=== PATIENT | female | born 1985 | race Caucasian/White ===

== ENCOUNTER 2019-12-09 17:31 | Inpatient (IN) | payer OTHER ==
--- NOTE | 2019-12-09 18:29 | RAD ---
RADIOGRAPH LEFT ANKLE 2 VIEWS: 12/09/19 at 6:13 p.m. HISTORY: 34-year-old female status post acute traumatic injury to ankle from fall. TECHNIQUE: Only AP and lateral FINDINGS: There is fracture of the posterior malleolus, with significant superior and posterior displacement of the distal fragment. The talus is dislocated posteriorly relative to the tibial plafond. Although no malalignment is visualized on the AP view, it is suspected that there is a transverse fracture lucen cy across the medial malleolus. On the lateral view, a fracture fragment is visualized slightly infer iorly and lateral to the distal fibula. IMPRESSION: Trimalleolar fracture-dislocation of the ankle. Recommend oblique view. POS: JIN
[2019-12-09 19:43] LABS: #Eosinphils 0.1 thou/uL (0.0-0.7); #Lymphocytes 1.6 thou/uL (1.20-3.40); #Neutrophils 10.6 thou/uL (1.40-6.50); %Basophils 0.4 % (0.0-1.0); %Eosinophils 0.6 % (0.0-10.0); %Lymphocytes 11.9 % (21.0-51.0); %Monocytes 7.3 % (0.0-10.0); %Neutrophils 79.9 % (42.0-75.0); Hemoglobin 12.8 g/dL (12.0-16.0); Mean Corpuscular HGB CONC 33.7 g/dL (32.0-36.0); Mean Corpuscular Volume 94.8 fL (78.0-98.0); Mean Platelet Volume 8.6 fL (7.4-10.4); Platelet Count 189 thou/uL (130-400); RBC Distribution Width 12.2 % (11.5-14.5); Red Blood Cell (RBC) Count 4.01 mill/uL (4.20-5.40); White Blood Cell (WBC) Count 13.2 thou/uL (4.8-10.8)
[2019-12-09 20:02] LABS: Bilirubin Negative (Negative); Blood, Urine Negative (Negative); Clarity Hazy (Clear); Glucose, Urine (Dipstick) Negative (Negative); Leukocyte Negative (Negative); Nitrite Negative (Negative); Protein, Urine (Dipstick) Trace mg/dL (Neg-Trace); Urobilinogen 0.2 mg/dL (Less than 2)
[2019-12-09 20:03] LABS: Bacteria/HPF None Seen HPF (None Seen); RBC/HPF None Seen HPF (0-3); Squamous Epithelial 0-3 HPF (0-3); WBC/HPF 0-3 HPF (0-3)
[2019-12-09 20:03] LABS: Anion Gap 14 mmol/L (10-20); BUN (Urea Nitrogen) 10 mg/dL (7.0-18.7); Calc. Creatinine Clearance 0 mL/min (70-130); Calcium 8.7 mg/dL (7.8-10.44); Carbon Dioxide 19 mmol/L (22-29); Chloride 106 mmol/L (98-107); Estimated GFR-MDRD Greater than 90; Glucose 84 mg/dL (70-105); Potassium 3.5 mmol/L (3.5-5.1); Sodium 135 mmol/L (136-145)
--- NOTE | 2019-12-09 20:07 | RAD ---
RADIOGRAPH LEFT FOOT TWO VIEWS: 12/09/19 at 7:15 p.m. HISTORY: 34-year-old female with acute traumatic fracture dislocation of the ankle. FINDINGS: Splint obscures fine bony detail of the foot. Tendon carol at neck of first metatarsal and proxima l half of first proximal phalanx. No displaced fracture of the foot is identified. No dislocation of the foot. Dislocation of ankle with fractures. IMPRESSION: 1. No grossly displaced fracture of the foot proper. 2. Status post tendon carol around the first metatarsophalangeal joint. 3. Displaced trimalleolar fracture-dislocation of ankle. POS: JIN
[2019-12-09] MEDS ORDERED: Dextrose 5% in Water 1,000 ML IV PRN (20:12)
[2019-12-09] MEDS ORDERED: Ondansetron PF 4 MG/2 ML Vial IVP PRN (20:12)
[2019-12-09] MEDS ORDERED: Ondansetron ODT 4 MG TAB PO PRN (20:12)
[2019-12-09] MEDS ORDERED: Dextrose 50% Abboject 50 ML SYRINGE SLOW IVP PRN (20:12)
--- NOTE | 2019-12-09 20:26 | RAD ---
RADIOGRAPH LEFT ANKLE 2 VIEWS 12/09/19 HISTORY: 34-year-old female with acute ankle fracture-dislocation. FINDINGS: The ankle has been placed into a splint. There has been no other interval change. Posterior dislocati on of the talus relative to the tibial plafond. Displaced fractures of the posterior, medial, and lat eral malleoli. Incidental finding of old tendon carol at the neck of the first metatarsal and proxi mal portion of first proximal phalanx are now in the field of view on the lateral view. IMPRESSION: 1. No interval change in alignment of the acute, traumatic, trimalleolar displaced fracture-disl ocation. 2. Placement of splint. POS: JIN
--- NOTE | 2019-12-09 21:21 | CON ---
DATE OF CONSULTATION: 12/09/2019 ADMITTING PHYSICIAN: Julio Cesar Eubanks DO CONSULTING PHYSICIAN: Miguel Angel Olea MD REASON FOR CONSULTATION: Thirty-five weeks gestation status post left ankle trimalleolar fracture. HISTORY OF PRESENT ILLNESS: Ms. King is a 34-year-old 3, para 2, who is at 35 weeks gestation. She sees Ralph Garland, [facility]. She was walking this afternoon, stumbled and suffered a trimalleolar fracture of her left ankle. She denies abdominal trauma. Reports an active fetus. Denies contractions. She states that by her CHELY, she is 35 weeks' gestation. SHE[employer]ER HISTORY: x1 for breech and labor at term, TOLAC and successful x1 at [facility]. The patient is planning on [facility] this . PAST MEDICAL HISTORY: Denies. PAST SURGICAL HISTORY: Bunionectomy and . ALLERGIES: FOOD ONLY. MEDICATIONS: vitamins. SOCIAL HISTORY: Denies tobacco, alcohol, or IV drug use. FAMILY HISTORY: Noncontributory. REVIEW OF SYSTEMS: Noncontributory. PHYSICAL EXAMINATION: GENERAL: White female, resting comfortably. VITAL SIGNS: Blood pressure 118/72, pulse 85, respirations 18. HEENT: Within normal limits. LUNGS: Clear to auscultation bilaterally. HEART: Regular rhythm. ABDOMEN: Soft and nontender. FHTs 140s. PELVIC: Vulva without lesions. Vaginal exam deferred. EXTREMITIES: No clubbing, cyanosis, or edema except for a bandage and splinting on the left ankle. IMPRESSION: Status post fall without abdominal trauma and left ankle fracture at 35 weeks' gestation. PLAN: 1. A 2-hour monitoring on Labor and Delivery. 2. Continue consultation for in-hospital care. 3. Recommend continuous monitoring if general anesthetic is utilized for surgical procedure and recommend left uterine displacement if at all possible if the patient is going to be on her back for surgery. OB hospitalist service will follow along with Orthopedics and Trauma service management. Job ID: [id number]
[2019-12-09] MEDS: Acetaminophen 500 MG TAB PO SCH (22:39)
[2019-12-09] MEDS: Lactated Ringer's 1,000 ML IV SCH (22:48)
[2019-12-09 23:20] VITALS: BMI 27.3
--- NOTE | 2019-12-09 23:26 | HP ---
ATTENDING PHYSICIAN: Dr. Rider. REQUESTING ER PHYSICIAN: Dr. Klein. CONSULTS: 1. Dr. Olea, [facility]. 2. Orthopedic Surgery, Dr. Foster. CHIEF COMPLAINT: Ground level fall, left ankle trimalleolar fracture, and 35 weeks gestation. HISTORY OF PRESENT ILLNESS: This is a 34-year-old female who is 35 weeks gestation. The patient is a 3, para 2. The patient reports she was ambulating outside when she slipped on some gravel, she was trying to avoid landing floor on her abdomen, which caused her to injure her left ankle. The patient reported immediate left ankle pain and deformity. The patient denies hitting her head or hitting her abdomen. The patient denies any other injuries or complaints. The patient reports that the fetus has been active since she has fallen. The patient denies any contractions or vaginal bleeding. The patient was evaluated in the emergency room and her left trimalleolar fracture dislocation was reduced without any sedation or pain medication per patient request. The patient reports giving a natural 3 years ago and plans do that again with this . The patient was seen in Labor and delivery as she is having monitoring done for approximately 2 hours. The patient's nurse states no abnormalities. PAST MEDICAL HISTORY: Denies. PAST SURGICAL HISTORY: x1 and bilateral bunion repair. ALLERGIES: DAIRY, SOY, GLUTEN AND LATEX WHICH CAUSES RASH. MEDICATIONS: 1. vitamins. 2. Probiotics. SOCIAL HISTORY: Denies tobacco use, alcohol, or IV drug use. The patient is with 2 children. REVIEW OF SYSTEMS: A 10-point review of systems is negative unless otherwise indicated in the above HPI. PHYSICAL EXAMINATION: VITAL SIGNS: Blood pressure 123/79, pulse 92, respirations 18, temperature 99.0, SpO2 99% on room air. GENERAL: Well-appearing young female, awake, alert, in no distress. Currently in Labor and delivery with monitoring. HEENT: Head is atraumatic and normocephalic. Pupils are equal bilateral, mucous membranes are moist. NECK: No neck pain, normal range of motion of neck. RESPIRATORY: Bilateral breath sounds clear. No wheezing, rales, or rhonchi. HEART: Regular rate and regular rhythm. No murmurs. ABDOMEN: Soft, nontender. heart tones 140s. EXTREMITIES: Moves all extremities, distal pulses intact, left lower extremity splinted. No focal deficits. NEUROLOGIC: GCS 15. No focal deficits. IMPRESSION: 1. Status post ground level fall. 2. Left ankle trimalleolar fracture and dislocation, status post reduction in the ER. 3. 35 weeks gestation. PLAN: Admit to the surgical floor once completion of her 2 hour monitoring. Regular diet, gluten free, soy free and dairy free this evening and then n.p.o. after midnight. Maintenance IV fluids LR at 100 mL an hour. Most likely, the patient will go to the OR with Orthopedic Surgery in the morning for repair of her left ankle fracture. Physical and occupational therapy to evaluate and treat postop. The plan will be discussed with the attending after the dictation. Job ID: [id number]
[2019-12-10] MEDS: Acetaminophen 500 MG TAB PO SCH ×5 (01:24→23:16)
--- NOTE | 2019-12-10 07:18 | PRG ---
DATE OF SERVICE: 12/10/2019 TIME OF SERVICE: 0655 hours. SUBJECTIVE: Carmel is a 35 weeks with OB care at [facility], who is status post fall and trimalleolar fracture of the left ankle on 12/08. She was observed on Labor and Delivery for 2 hours with a reactive category 1 nonstress test. She reports an active fetus this morning, and is resting comfortably. The patient is n.p.o. with anticipated open reduction and internal fixation of ankle fracture by Dr. James Foster today. Abdominal exam is unremarkable and unchanged. IMPRESSION: Thirty-five weeks status post left ankle fracture, awaiting surgery. PLAN: We will continue to follow along with the patient. The fetus will require continuous monitoring in the operating room. If possible left lateral displacement of the uterus with sandbags under the patient's right hip and lower back would be preferred intraoperatively if the patient is to lie on her back during surgery. Labor and Delivery nurses are aware. Job ID: [id number]
[2019-12-10] MEDS: Lactated Ringer's 1,000 ML IV SCH (08:46)
[2019-12-10] MEDS ORDERED: Fentanyl 100 MCG/2 ML VIAL ONE (10:29)
[2019-12-10] MEDS ORDERED: Succinylcholine Chloride 20 MG/ML 10 ml SYRINGE FS ONE (11:39)
[2019-12-10] MEDS ORDERED: Bupivacaine HCl 0.5%/Epinephrine 1:200,000/PF 30 ml Vial ONE (11:39)
[2019-12-10] MEDS ORDERED: PROPOFOL 200 MG/20 ML VIAL ONE (11:39)
[2019-12-10] MEDS ORDERED: Lidocaine 2% w/Epinephrine 1:200K 20 ML VIAL ONE (11:39)
[2019-12-10] MEDS ORDERED: PHENYLEPHRINE-NS 100 MCG/ML 10 ML SYRINGE ONE (11:39)
[2019-12-10] MEDS ORDERED: CEFAZOLIN 2 GM in Premix Bag 1 BAG IVPB SCH (12:00)
--- NOTE | 2019-12-10 12:35 | CON ---
DATE OF CONSULTATION: 12/10/2019 CHIEF COMPLAINT: Left ankle pain. HISTORY OF PRESENT ILLNESS: Ms. King is a 34-year-old female, who was walking near her house yesterday. She stepped on uneven ground. She twisted and fell. She is 32 weeks . She felt pain and deformity of her ankle. She was unable to bear weight. She was taken to the Emergency Department. X-rays determined a trimalleolar ankle fracture dislocation with obvious displacement. She has been splinted. She has been admitted to the hospital. Dr. Olea has seen the patient, as well as the General Surgery Trauma Service. I was consulted to treat her ankle fracture. ALLERGIES: GLUTEN, DAIRY, SOY, AND LATEX. PAST MEDICAL HISTORY: Negative. The patient is currently . MEDICATIONS: 1. Probiotics. 2. vitamin. SOCIAL HISTORY: The patient denies tobacco, alcohol, or drug use. REVIEW OF SYSTEMS: Positive for ankle pain with movement. Otherwise, negative 10-point review of systems. IMAGES: X-rays of the left ankle demonstrate a trimalleolar ankle fracture. The talus is dislocated posteriorly. The patient has hardware in her forefoot, which is chronic in nature. PHYSICAL EXAMINATION: VITAL SIGNS: Temperature is 98, pulse is 83, respiratory rate is 20, oxygen saturation is 99%, and blood pressure is 105/71. GENERAL: She is alert, lying supine, in no apparent distress. RESPIRATORY: Breathing comfortably. ABDOMEN: Soft, nontender, and nondistended. MUSCULOSKELETAL: The patient's left lower extremity is splinted. She is able to flex and extend her toes. She has 2 second capillary refill. IMPRESSION: Left ankle fracture dislocation in a 34-year-old female. PLAN: At this point, the patient will need to go to the operating room for open reduction and internal fixation of the ankle. We will plan for this later today. She is n.p.o. She will be tilted on her side as recommended by the Obstetrics Service. She will have monitoring during surgery. A general anesthetic has been recommended. She can likely be discharged home today if she is doing well. She will need to be nonweightbearing using a walker for mobility. She will have pain control. Job ID: [id number]
--- NOTE | 2019-12-10 12:45 | RAD ---
Radiograph left ankle 3 views: 12/10/2019 11:22 AM HISTORY: 34-year-old male with acute, traumatic, trimalleolar fracture-dislocation of the ankle. COMPARISON: 12/09/2019 FINDINGS: Fluoroscopic spot images obtained with C-arm in the OR. The tibiotalar or dislocation has been reduce d. Ankle mortise is now congruent. There has been interval reduction of the medial malleolus fracture fixated now with 2 lag screws. There has been interval reduction and plate and screw fixatio n of the lateral malleolus fracture. The posterior malleolus fracture fragment displacement has improved. IMPRESSION: Open reduction internal fixation of acute, traumatic, trimalleolar fracture-dislocation of the ankle, with hardware fixation of medial and lateral malleolar fractures.
[2019-12-10] MEDS: CEFAZOLIN 2 GM in Premix Bag 1 BAG IVPB SCH (17:00)
--- NOTE | 2019-12-10 17:37 | PRG ---
DATE OF SERVICE: 12/10/2019 SUBJECTIVE: The patient was seen this afternoon postoperatively after fixation of her left trimalleolar fracture/dislocation. At the time of my evaluation, she was sitting at the edge of the bed and she reported she had no pain. Anesthesia had placed a nerve block. The left upper extremity was splinted. She was getting ready to work with Physical Therapy. She denied nausea or vomiting. OBJECTIVE: VITAL SIGNS: Temperature 98.5, pulse 100, respirations 16, oxygen saturation 98% on room air, and blood pressure 116/80. GENERAL: Well-appearing young female, sitting up at edge of bed with no signs of acute distress. PULMONARY: Equal chest rise and fall. No signs of acute respiratory distress. CARDIAC: Regular rate and rhythm. GI: Abdomen is gravid with no signs of trauma. EXTREMITIES: 2+ pulses in all extremities. Gross motor and sensation intact in bilateral upper and lower extremities. The patient has a nerve block to her left lower extremity and such, she has decreased neuro sensation, which is expected. NEUROLOGIC: GCS 15. LABORATORY FINDINGS: There are no new laboratory findings to discuss. DIAGNOSTIC FINDINGS: There are no new diagnostic findings to discuss. ASSESSMENT: 1. Status post ground level fall. 2. Left trimalleolar fracture/dislocation, status post repair. 3. 35-week gestation , G3, P2. PLAN: Continue current diet and pain regimen. Discontinue IV fluids. Continue physical and occupational therapy. OB Service to complete monitoring every shift. We will touch base with them in the morning to determine if the patient is ready for discharge tomorrow. I did discuss with her increased risk of developing DVT due to her injury in her and also informed her contraindication of chemo DVT prophylaxis due to her . I did discuss with her that chemo DVT prophylaxis is usually our standard of care, but she was contraindicated. I also did discuss with her the signs and symptoms of a DVT as well as a PE. She stated she understood and had no questions. She will likely be able to be discharged home tomorrow if cleared by the OB Service and she can safely get around with a walker and her pain is controlled. This patient was evaluated postoperatively. Job ID: [id number]
--- NOTE | 2019-12-10 19:01 | OP ---
DATE OF PROCEDURE: 12/10/2019 PROCEDURE PERFORMED: Open reduction and internal fixation of left trimalleolar ankle fracture dislocation. PREOPERATIVE DIAGNOSIS: Left trimalleolar ankle fracture with dislocation. POSTOPERATIVE DIAGNOSIS: Left trimalleolar ankle fracture with dislocation. COMPLICATIONS: None. ESTIMATED BLOOD LOSS: Minimal. MANAGER TALENT ACQUISITION: Brittany Cortes PA-C. IMPLANT: Synthes one-third tubular plate with multiple nonlocking screws. INDICATIONS: Ms. King is a 34-year-old female who is 34 weeks' . She has fallen and fractured her left ankle. She has been indicated for open reduction and internal fixation. Risks have been reviewed in detail. She has elected to proceed with the operation. DESCRIPTION OF PROCEDURE: Ms. King was identified in the preoperative holding area. Her correct extremity was marked. She was carried to the operating room. She was positioned supine. General anesthesia was induced. A multidisciplinary time-out was performed. The left lower extremity was prepped and draped in sterile fashion. We began the procedure with a lateral approach to the distal fibula. We dissected down through the subcutaneous tissues to the fascia, which was opened. We exposed the underlying fibular fracture. We reduced the fracture by pulling wing from the bone and reducing the fracture with a reduction clamp. We then applied a 6.0 one-third tubular plate to the fibula. We checked intraoperative x-rays, checking our screw placement. There were no complications. We filled the remainder of the screws. Next, we made an incision over the medial ankle and dissected down to the bony level. We exposed the medial malleolus fracture. This was a displaced and comminuted fracture. We reduced the medial malleolar fracture back into its anatomic position. We held this with a K-wire. We then placed two 4.0 partially-threaded screws in the medial malleolus. Again, x-rays were taken including a stress view x-ray, which was negative. We thoroughly irrigated and closed appropriately in layers. A sterile dressing and a splint was placed. Job ID: [id number]
--- NOTE | 2019-12-11 00:27 | PRG ---
DATE OF SERVICE: 12/10/2019 SUBJECTIVE: The patient was seen during evening rounds, awake, alert, sitting up in hospital bed. The patient is postop day #0 after open reduction and internal fixation of her left trimalleolar fracture, dislocation. The patient is currently reporting some moderate pain as her block has recently wore off. The patient has been refusing any pain medications prior. The patient is currently getting a dose of Tylenol at this time. The patient continues to tolerate a regular diet and is able to get around using a walker. OBJECTIVE: VITAL SIGNS: Stable, afebrile. GENERAL: Well-appearing young female, in moderate distress due to left ankle pain. PULMONARY: Equal chest rise and fall. Good inspiratory and expiratory effort. No distress. EXTREMITIES: Moves all extremities. Gross motor and sensation intact in all extremities. Cap refill less than 2 seconds in her left lower extremity. Splint and bandage are clean, dry, and intact. ASSESSMENT: 1. Status post ground level fall. 2. Left trimalleolar fracture, status post open reduction and internal fixation. 3. 35-week gestation , G3, P2. PLAN: Continue current diet and pain regimen. The patient was encouraged to take the Tylenol every 6 hours for pain. Continue physical and occupational therapy. OB Service plans to complete monitoring every shift. SCDs for VTE prophylaxis. Plan was discussed with the patient, who agrees. Job ID: [id number]
[2019-12-11] MEDS ORDERED: Acetaminophen/Codeine 30-300mg Tablet PO PRN (00:40)
[2019-12-11] MEDS ORDERED: Acetaminophen 500 MG TAB PO SCH (00:43)
[2019-12-11] MEDS: CEFAZOLIN 2 GM in Premix Bag 1 BAG IVPB SCH (00:46)
[2019-12-11] MEDS: Acetaminophen/Codeine 30-300mg Tablet PO PRN ×3 (00:54→11:49)
[2019-12-11 04:59] LABS: #Eosinphils 0.1 thou/uL (0.0-0.7); #Lymphocytes 1.7 thou/uL (1.20-3.40); #Monocytes 1.2 thou/uL (0.11-0.59); %Basophils 0.3 % (0.0-1.0); %Eosinophils 0.5 % (0.0-10.0); %Lymphocytes 12.8 % (21.0-51.0); %Monocytes 9.3 % (0.0-10.0); %Neutrophils 77.2 % (42.0-75.0); Hemoglobin 10.9 g/dL (12.0-16.0); Mean Corpuscular HGB CONC 32.7 g/dL (32.0-36.0); Mean Corpuscular Hemoglobin 31.1 pg (27.0-31.0); Mean Corpuscular Volume 95.2 fL (78.0-98.0); Mean Platelet Volume 8.4 fL (7.4-10.4); Platelet Count 155 thou/uL (130-400); RBC Distribution Width 12.2 % (11.5-14.5); Red Blood Cell (RBC) Count 3.49 mill/uL (4.20-5.40); White Blood Cell (WBC) Count 12.9 thou/uL (4.8-10.8)
[2019-12-11] MEDS: Acetaminophen 325 MG TAB PO SCH ×2 (05:02→11:48)
[2019-12-11 05:22] LABS: Anion Gap 12 mmol/L (10-20); BUN (Urea Nitrogen) 4 mg/dL (7.0-18.7); Calc. Creatinine Clearance 138 mL/min (70-130); Calcium 7.5 mg/dL (7.8-10.44); Carbon Dioxide 19 mmol/L (22-29); Chloride 108 mmol/L (98-107); Estimated GFR-MDRD Greater than 90; Glucose 115 mg/dL (70-105); Magnesium 2.1 mg/dL (1.6-2.6); Phosphorus 3.1 mg/dL (2.3-4.7); Potassium 3.5 mmol/L (3.5-5.1); Sodium 135 mmol/L (136-145)
[2019-12-11] MEDS ORDERED: Potassium Chloride 20 MEQ TAB PO SCH (08:00)
--- NOTE | 2019-12-11 09:16 | PRG ---
DATE OF SERVICE: 12/11/2019 SUBJECTIVE: The patient is a 34-year-old female with a 32 week , postop day 1, status post orthopedic surgical repair of her ankle. The patient this morning denies any abdominal pain, bleeding, leaking fluid, and is having good movement. OBJECTIVE: VITAL SIGNS: This morning, blood pressure 121/76, temperature 98.0, pulse of 91, respiratory rate of 16, saturating 98% on room air. GENERAL: She appears to be in no acute distress. She is alert, oriented, cooperative, and pleasant to interact with. LABORATORY DATA: heart tracing shows the fetus with a baseline in the 150s with moderate long-term variability positive 15 x 15 accelerations. ASSESSMENT AND PLAN: The patient is a 34-year-old female, postop day 1, status post orthopedic repair, having no obstetric complaints or problems. Fetus has a category 1 tracing and reactive NST and from the OB standpoint, the patient is stable at discharge when orthopedic is ready. Plan at this time, from an obstetric standpoint, she will follow up with her primary OB provider for routine care. We have had a discussion about use of pain medication as the patient expressed concern about the effects of pain medicine on her . We have counseled her that she can use the Tylenol 3 or other pain medications provided that do not include NSAIDs for pain control without concern or fear. The goal should be not to have zero pain, but to have pain that is tolerable and can follow up with her orthopedic physician. Job ID: [id number] MTDD
[2019-12-11 11:20] VITALS: BP 106/68; TEMP 98.5
--- NOTE | 2019-12-12 08:07 | DIS ---
DATE OF ADMISSION: 12/09/2019 DATE OF DISCHARGE: 12/11/2019 ADMISSION DIAGNOSES: Ground level fall and left trimalleolar fracture dislocation and 35-week gestation . DISCHARGE DIAGNOSES: Ground level fall and left trimalleolar fracture dislocation and 35-week gestation . CONSULTING PHYSICIANS: Dr. Foster of Orthopedic Surgery and Dr. Olea of [facility]. PROCEDURES: The patient went to the OR on December 10, 2019, and received an ORIF of the left trimalleolar ankle fracture dislocation. HOSPITAL COURSE: The patient is a 34-year-old female, presented to the emergency department after a mechanical fall from standing. She is 35 weeks , G3, P2. She was evaluated by [facility], who did nonstress testing and monitoring and reported she was safe to go to surgery. Dr. Foster took her to the OR on December 10, 2019, for fixation of the left trimalleolar ankle fracture dislocation. Postoperatively, she underwent additional monitoring. At the time of discharge, the patient's pain was well controlled. She was tolerating a regular diet. She was ambulating with a walker and she was voiding without difficulties. DISCHARGE DISPOSITION: Home. DISCHARGE CONDITION: Satisfactory. PHYSICAL EXAMINATION: VITAL SIGNS: Temperature 98.0, pulse 91, respirations 16, oxygen saturation 98% on room air, and blood pressure 121/76. GENERAL: Well-appearing young female, sitting up in bed with no signs of acute distress. PULMONARY: Equal chest rise and fall. No signs of acute respiratory distress. CARDIAC: Regular rate and rhythm. GI: Abdomen is gravid and nontender. EXTREMITIES: 2+ pulses in all extremities. Gross motor and sensation are intact. Left lower extremity with splint that is clean, dry, and intact. NEURO: GCS is 15. DISCHARGE INSTRUCTIONS: The patient was discharged home, nonweightbearing to her left lower extremity, regular diet, with a walker. DISCHARGE MEDICATIONS: Include; 1. Tylenol. 2. Tylenol No. 3. 3. Probiotics. 4. vitamins. FOLLOWUP APPOINTMENTS: The patient is to follow up with her [facility] as needed. No followup necessary with Trauma Clinic. She will also have followup with Dr. Foster. This is a summary of the patient's hospitalization. For full details, please see her medical record in its entirety. Job ID: [id number]
== END 2019-12-11 12:00 | disposition home or self-care (01) | DRG 819 ==
LOC: ERS 17:31 → L&D/OP 20:35 → L&D 20:42 → SURG A 22:47
PROVIDERS: ADMIT Obstetrics & Gynecology; ATTEND Obstetrics & Gynecology
PROC: 0QSH04Z Reposition Left Tibia with Internal Fixation Device, Open Approach (ICD-10-PCS; principal; 2019-12-10)
DX: O9A.213 Injury, poisoning and certain other consequences of external causes complicating pregnancy, third trimester (principal); Z3A.35 35 weeks gestation of pregnancy; S82.852A Displaced trimalleolar fracture of left lower leg, initial encounter for closed fracture; W18.39XA Other fall on same level, initial encounter; Z88.8 Allergy status to other drugs, medicaments and biological substances; Z91.040 Latex allergy status; Z91.018 Allergy to other foods
CPT/HCPCS: 27818; 36415; 76000; 80048; 81003; 83735; 84100; 85025; 93005; C1713; J0670; J0690; J2704; J3010